=== PATIENT | female | born 1985 | race Caucasian/White ===

== ENCOUNTER 2018-01-30 22:32 | Emergency (ER) | payer BC, SELFPAY ==
[2018-01-30 22:33] VITALS: BP 110/75; PULSE 99; RESP 18; TEMP 36.7; O2SAT 95; BMI 23.8
--- NOTE | 2018-01-30 22:59 | ED.DCSUM_ITS ---
- ER Visit Summary Date of Service: 01/30/18 Chief Complaint: [] Pain to her right knee History of Present Illness: The patient is a 32 F patient stated she has some pain just distal to her right kneecap started yesterday gradual started to get red and warm and tender. Using ibuprofen with good relief. She has small cut there that healed up last week. She has never had infections before. Physical Examination: [] Vital signs reviewed General: Well-nourished well-developed Head: Normocephalic atraumatic Eyes: Pupils equal round and reactive to light extraocular movements intact ENT: TMs clear no hemotympanum no trauma Neck: Nontender full range of motion Cardiovascular: Regular rate rhythm no murmurs normal S1-S2 Respiratory: No distress clear to auscultation bilaterally chest nontender Abdomen: Soft nontender nondistended normal bowel sounds no masses Back: Nontender no CVA tenderness Extremities: She has a superficial cellulitis distal to her right kneecap. It measures 4 cm x 4 cm circular. There is no abscess Neuro alert oriented cranial nerves II through XII intact normal strength sensation reflexes Test Results: [] Emergency Department Course and Treatment: [] Time the patient is a superficial cellulitis. She will be treated with doxycycline and Keflex. Has a sulfa allergy therefore no Bactrim. Will follow-up as an outpatient. We will continue ibuprofen Treatment Plan: [] Disposition: [] Impression: [] Right leg cellulitis This note was generated with [employer] dictation software. It may contain incorrect words, spelling, and punctuation that were not noted in review of the chart prior to signing ED Disposition - Plan for ED Patient: Chief Complaint: Lower Extremity Injury Referrals: Tony Razo MD [Primary Care Provider] -
--- NOTE | 2018-01-30 22:59 | ED.DEP ---
ED Disposition - Plan for ED Patient: Disposition: Home or Assisted Living Chief Complaint: Lower Extremity Injury Instructions: Discharge Instructions for Cellulitis Prescriptions: Cephalexin [Keflex] 500 mg PO Q6 #28 cap Doxycycline Monohydrate 100 mg PO BID #14 cap Referrals: Tony Razo MD [Primary Care Provider] -
[2018-01-30] MEDS: Doxycycline 100 MG CAPSULE PO (23:25)
[2018-01-30] MEDS: Cephalexin 250 MG Capsule 500 MG PO (23:25)
[2018-01-30 23:27] VITALS: BP 104/74; PULSE 84; O2SAT 97
== END 2018-01-30 23:27 | disposition home or self-care (01) ==
LOC: ED 23:04
PROVIDERS: Emergency Provider Emergency Medicine; Family Provider Family Medicine; PCP Family Medicine
DX: L03.115 Cellulitis of right lower limb (principal); Z88.2 Allergy status to sulfonamides
CPT/HCPCS: 99282

== ENCOUNTER → 2018-05-16 16:30 | Outpatient (CLI) | payer BC, MEDICAID, SELFPAY ==
--- NOTE | 2018-05-16 16:30 | EMB_PTH ---
PATIENT: MIRTHA YUN LOC: [facility] U#:[id number] AGE/SX: 39/F ROOM: RE05/16/[address]: Dr. Cameron Camargo MD : [id number] BED: DIS: SPEC #: [id number] RECD: 05/16/18 19:08 STATUS: BARRY VIET #: [id number] ROB: 05/16/18 16:[address]: Cameron Camargo DEPT: SURGICAL PATHOLOGY RECD BY: Josef Lanza ENTERED: 05/17/18 10:18 SP TYPE: ENDOM BX/C SRINIVASAN DR: Dr. Tony Razo MD Tissues: Endometrium, NOS Procedures: Surgery Specimen Level IV HEADER OPERATION: Endometrial biopsy PRE-OP DIAGNOSIS: N92.1 TISSUE SUBMITTED: Endometrial biopsy MICROSCOPIC DIAGNOSIS Endometrial biopsy: Secretory endometrium. SJ:luz 05/20/18 MICROSCOPIC DESCRIPTION Slides are reviewed. GROSS DESCRIPTION Received in fixative is one container labeled with the patient's name and designated EM biopsy. The specimen consists of multiple irregular fragments of perez-pink soft tissue that in aggregate measure 3 x 2.5 x 0.3 cm. The entire specimen is submitted in one cassette. / SJ:luz 05/17/18 TC:4 CPT: 53585
[2018-05-21 10:00] LABS: HPV Reflexed? NOT INDICATED
--- OUTSIDE RECORDS SUMMARY | 2018-07-02 22:27 | XMS RPT_ITS ---
:1985 Author Organization OHIP Care Team Providers Name Role Phone HIMA ALFONSO ([facility]) Attending Unavailable LETY ALICEA Referring Unavailable HIMA ALFONSO ([facility]) Referring Unavailable ALICE LANCE ([facility]) Attending Unavailable Cameron Camargo Attending Unavailable Cameron Camargo Referring Unavailable Lety Alicea Primary Care Unavailable Lety Alicea Primary Care Unavailable Rafael Downs Attending Unavailable PROBLEMS PROBLEMS DATE TYPE CONDITION / CODE ATTENDING STATUS SOURCE 05/17/2018 Unknown N92.1 - Excessive Cameron Camargo Active [place] and frequent Community menstruation with Hospital irregular cycle / Repository N92.1(ICD-10) 05/17/2018 Unknown Z12.4 - Encounter Cameron Camargo Active [place] for screening for Community malignant neoplasm [facility] of cervix / Repository Z12.4(ICD-10) 07/05/2017 Active Encounter for NA Active [facility] antibody response [facility] examination / Repository Z01.84(ICD-10) PROCEDURES PROCEDURES No Procedure Records FoundRESULTS RESULTS ENDOMETRIAL BX/CURETTINGS Observed: 05/16/2018 Status: F Source: [place] 4:30 PM [facility] REPOSITORY Patient: MIRTHA MARIE : 1985 (32/F) Acct Num: [id number] Phys: Mary Jo MAR,Cameron Unit Num: [id number] Loc: LABSPEC Specimen: [id number] Received: 05/16/181907 Spec Type: ENDOM BX/C TISSUES 1 TISSUES: Endometrium, NOS GROSS DESCRIPTION Received in fixative is one container labeled with the patient's name and designated EM biopsy. The specimen consists of multiple irregular fragments of perez-pink soft tissue that in aggregate measure 3 x 2.5 x 0.3 cm. The entire specimen is submitted in one cassette. / SJ:luz 05/17/18 TC:4 CPT: 64508 HEADER OPERATION: Endometrial biopsy PRE-OP DIAGNOSIS: N92.1 TISSUE SUBMITTED: Endometrial biopsy MICROSCOPIC DESCRIPTION Slides are reviewed. MICROSCOPIC DIAGNOSIS Endometrial biopsy: Secretory endometrium. SJ:luz 05/20/18 Signed Melecio Foley MD 05/20/18 <signature on file> Performed By: #### PEMB #### [facility] [address] [place] [address]. [place], [address] PAP IG W/REFLEX HR Collected: 05/16/2018 Status: F Source: [place] HPV [place] 4:00 PM [facility] [place] Order Comment: CYTOLOGY INFORMATION: - CLINICAL INFORMATION: - DATE LMP/MENOPAUSE:04-21-18 LMP - COLLECTION VIAL: Thin Prep Vial - TANK HOUSE OPERATOR HELPER SOURCE: CERVICAL/ENDOCERVICAL - COLLECTION TECHNIQUE: BRUSH/SPATULA Specimen Comment: [id number] Specimen Comment: Source.............Labia/Vulva Specimen Comment: LMP / Prev Treat...[id number] Specimen Comment: No. of containers..01 ThinPrep Vial TYPE CODE TESTS RESULT OUT OF RANGE REFERENCE UNITS LAB L7400.0800 . Normal DIAGN Comment Result Comment: NEGATIVE FOR INTRAEPITHELIAL LESION AND MALIGNANCY. PREDOMINANCE OF COCCOBACILLI CONSISTENT WITH SHIFT IN VAGINAL LAUREN IS PRESENT. LAB L7400.0900 . Normal ADEQ Comment Result Comment: Satisfactory for evaluation. Endocervical and/or squamous metaplastic cells (endocervical component) are present. LAB L7400.1400 . Normal PERFORM Comment Result Comment: Sofia Carlson Care Team Coordinator Scheduler (ASCP) LAB L7400.2575 . Normal TEST METHOD Comment Result Comment: This liquid based ThinPrep(R) pap test was screened with the use of an image guided system. LAB L7400.2600 . Normal . COMM LAB L7400.2700 . Normal PAPSMR Comment Result Comment: The Pap smear is a screening test designed to aid in the detection of premalignant and malignant conditions of the uterine cervix. It is not a diagnostic procedure and should not be used as the sole means of detecting cervical cancer. Both false-positive and false-negative reports do occur. LAB L7400.2800 . Normal HPV RFLX Comment Result Comment: The HPV DNA reflex criteria were not met with this specimen result therefore, no HPV testing was performed. Performed at: - [facility] [id number] [employer] Experimental Mechanic: Mary Ferreira MD, Phone: [phone] Performed By: #### L7400.0357 #### [facility] (refer to report for specific site) refer to report for address and phone number EMERGENCY DEPARTMENT Observed: 01/31/2018 Status: F Source: [place] SUMMARY 1:11 AM [facility] [place] [facility] Medical Records Department [address] [place] [address] Emergency Department Summary 01/30/18 2258 MR#: [id number] Acct: [id number] Name: MIRTHA MARIE Rep #: [id number] : 1985 32 From: Rafael Downs MD PCP: Lety Alicea MD Status: DEP ER - ER Visit Summary Date of Service: 01/30/18 Chief Complaint: [] Pain to her right knee History of Present Illness: The patient is a 32 F patient stated she has some pain just distal to her right kneecap started yesterday gradual started to get red and warm and tender. Using ibuprofen with good relief. She has small cut there that healed up last week. She has never had infections before. Physical Examination: [] Vital signs reviewed General: Well-nourished well-developed Head: Normocephalic atraumatic Eyes: Pupils equal round and reactive to light extraocular movements intact ENT: TMs clear no hemotympanum no trauma Neck: Nontender full range of motion Cardiovascular: Regular rate rhythm no murmurs normal S1-S2 Respiratory: No distress clear to auscultation bilaterally chest nontender Abdomen: Soft nontender nondistended normal bowel sounds no masses Back: Nontender no CVA tenderness Extremities: She has a superficial cellulitis distal to her right kneecap. It measures 4 cm x 4 cm circular. There is no abscess Neuro alert oriented cranial nerves II through XII intact normal strength sensation reflexes Test Results: [] Emergency Department Course and Treatment: [] Time the patient is a superficial cellulitis. She will be treated with doxycycline and Keflex. Has a sulfa allergy therefore no Bactrim. Will follow-up as an outpatient. We will continue ibuprofen Treatment Plan: [] Disposition: [] Impression: [] Right leg cellulitis This note was generated with mobifriends dictation software. It may contain incorrect words, spelling, and punctuation that were not noted in review of the chart prior to signing ED Disposition - Plan for ED Patient: Chief Complaint: Lower Extremity Injury Referrals: Lety Alicea MD [Primary Care Provider] - What to do if you have Problems For any increased pain, shortness of breath, bleeding, nausea or vomiting, chest pain, or any unexpected problems, contact your Primary Care Provider. Call [facility] ([phone]) or report to the closest Emergency Room. Call 911 if necessary. 01/31/18 0111 <Electronically signed by Rafael Downs MD> Date Rafael Downs MD Cosigner Signature (If Indicated): Date CC: Lety Alicea MD DISCHARGE INSTRUCTION Observed: 01/31/2018 Status: F Source: [place] 1:11 AM [facility] [place] [facility] Medical Records Department [address] [place] [address] Discharge Instruction 01/30/18 2259 MR#: [id number] Acct: [id number] Name: MIRTHA MARIE Rep #: [id number] : 1985 32 From: Rafael Downs MD PCP: Lety Alicea MD Status: DEP ER ED Disposition - Plan for ED Patient: Disposition: Home or Assisted Living Chief Complaint: Lower Extremity Injury Instructions: Discharge Instructions for Cellulitis Prescriptions: Cephalexin [Keflex] 500 mg PO Q6 #28 cap Doxycycline Monohydrate 100 mg PO BID #14 cap Referrals: Lety Alicea MD [Primary Care Provider] - What to do if you have Problems For any increased pain, shortness of breath, bleeding, nausea or vomiting, chest pain, or any unexpected problems, contact your Primary Care Provider. Call [facility] ([phone]) or report to the closest Emergency Room. Call 911 if necessary. 01/31/18 0111 <Electronically signed by Rafael Downs MD> Date Rafael Downs MD Cosigner Signature (If Indicated): Date CC: Lety Alicea MD CNOV Observed: 01/02/2018 Status: COMPLETED Source: [place] 1:40 PM [facility] REPOSITORY Office Visit (FAMPWS) MIRTHA MARIE ([id number]) 1985 F Date Time Provider Department 01/02/18 1:40 PM ALICE LANCE ([facility]) FAMPWS During your visit today, we recorded the following information about you: Pulse Respiration Blood pressure Weight 74/minute 12/minute 104/70 64 kg Alice Lance APRN.CNP 01/02/2018 1:59 PM Signed This is a 32 year old female who presents today with: Patient presents with: Medication Follow-up HISTORY OF PRESENT ILLNESS: Mirtha Marie is a 32 year old female. Patient presents with: Medication Follow-up Pt presents today for medication renewal. No problems/concerns. Refers since starting the prozac, things have been a lot better. Refers that she is a constant worry and it has helped a lot. Has noticed more recently, though, worry is increasing a little. She worries about not being there for kids. Worries about something happening to kids. Worries about getting sick or having cancer. Worries about dying. Depression evaluation: Sadness: Just when worries too much. Oldest is starting kindergarten. Sleep: A lot better. Interests/Hobbies: Work and kids. Guilt: Not really -- appreciates the time with the young ones. Energy Levels: Normal. Concentration: Good. Appetite: Hasn't changed. Physical: no Suicidal/homicidal ideation: Denies. CP PHQ9 01/02/2018 Little interest or pleasure 0 - Not at all Feeling down, depressed, hopeless 0 - Not at all Trouble falling or staying asleep, sleeping too much 1 - Several days Feeling tired, having little energy 1 - Several days Poor appetite or overeating 0 - Not at all Feeling bad about yourself, failure or you have let yourself/family down 2 - More than half the days Trouble concentrating on things 0 - Not at all Moving or speaking so slowly, or fidgety or restless 1 - Several days Thoughts that you would be better off , or of hurting yourself in some way 0 - Not at all How difficult have these problems made things Not difficult at all Interpretation of Total Score 5-9 Mild depression INGRIS-7 ANXIETY SCALE 01/02/2018 FEELING NERVOUS,ANXIOUS,OR ON EDGE 1 Several days NOT BEING ABLE TO STOP OR CONTROL WORRYING 3 Nearly every day WORRYING TOO MUCH ABOUT DIFFERENT THINGS 3 Nearly every day TROUBLE RELAXING 2 Over half the days BEING SO RESTLESS THAT IT'S HARD TO SIT STILL 1 Several days BEING EASILY ANNOYED OR IRRITABLE 0 Not at all sure FEELING AFRAID IF SOMETHING AWFUL MIGHT HAPPEN 3 Nearly every day GAD7 SCORE 13 IF YOU CHECKED OFF ANY PROBLEMS Not difficult at all PAST MEDICAL HISTORY: PAST MEDICAL HISTORY Diagnosis Date - Chlamydia 2006 - GERD (gastroesophageal reflux disease) 04/10/2014 prilosec prn - KIDNEY INFECTION 05/2011 HOSPITALIZED 1 day in [place] - [facility] - PAST MEDICAL HISTORY OF 10-13-2004 NORMAL COLOR VISION - 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 Started at age 19. PAST SURGICAL HISTORY Procedure Laterality Date - NONE ALLERGIES Sulfa (Sulfonamide Antibiotics); Neosporin [Ewnulikq-Oczvbozetu-Xvcijgelj] MEDICATIONS Current Outpatient Prescriptions: FLUoxetine (PROZAC) 10 mg capsule TAKE 1 CAPSULE BY MOUTH ONCE DAILY. COMPOUNDED PRESCRIPTION Plexus products omeprazole (PRILOSEC) 20 mg capsule Take 1 capsule by mouth daily before breakfast. 1/2 hr before meal. No current facility-administered medications for this visit. FAMILY HISTORY Problem Relation Age of Onset - Lipids Mother - Psychiatry Father depression/anxiety - Hypertension Father - Thyroid Sister - Psychiatry Brother anxiety - Alcohol/Drug Brother - suicide attempt [OTHER] Brother - Heart Maternal Grandmother bypass surgery - Skin Cancer Maternal Grandmother - myocardial infarction [OTHER] Maternal Grandfather 35 - Heart Paternal Grandfather 30's - Psychiatry Sister bipolar Social History Marital status: Spouse name: CHEYENNE Years of education: 14 Number of children: Occupational History Occupation Employer [employer]* Social History Main Topics Smoking status: Former Smoker Packs/day: 0.00 Years: 7.00 Types: Cigarettes Quit date: 03/03/2013 Smokeless tobacco: Never Used Comment: quit about 3 weeks Alcohol use: Yes 1.5 - 3.0 oz/week Cans of Beer (12oz): 1 - 2 per week Comment: NOT WHILE Drug use: No EXAM: BP 104/70 (BP Site: Right Arm, BP Position: Sitting, BP Cuff Size: Regular Adult) Pulse 74 Resp 12 Wt 64 kg (141 lb) BMI 23.83 kg/m? PHYSICAL EXAM: General Appearance: Well appearing, alert, in no acute distress, well-hydrated, well nourished.. Skin: Skin color, texture, turgor normal, no suspicious rashes or lesions. Head: Normocephalic, no masses, lesions, tenderness or abnormalities. Eyes: Anicteric sclera. Extraocular movements are intact. . Lungs: Lungs clear to auscultation. No wheezing, rhonchi, rales. Heart: RRR without murmur, gallop, or rubs. No ectopy. Extremities: No deformities, edema, skin discoloration, clubbing or cyanosis. Good capillary refill. Neurologic: Gait normal. ASSESSMENT/PLAN: 1. Anxiety - ICD9: 300.00, ICD10: F41.9 Improved. Has noticed worry increasing again more recently. Will increase dose. Recheck in a month -- sooner if needed. - FLUOXETINE 20 MG CAPSULE Discussed treatment plan and patient voices understanding. Patient's questions answered appropriately. Medications and potential side effects were discussed and patient voices understanding. Return to the office as scheduled or as needed for worsening/no improvement. Alice Lance APRN.DINORA Lance APRN.CNP 01/02/2018 1:44 PM Signed 1. Start new dose of medication. 2. Recheck in a month. Referring Provider: SELF [200] Allergies As of Date: 01/02/2018 Noted Allergy Reaction SULFA (SULFONAMIDE ANTIBIOTICS) 06/09/2011 2 - Rash NEOSPORIN (YJAGHRQE-YOIGGZFGNH-[id number]*05/14/2009 Comments: RASH Date Reviewed: 01/02/2018 Reviewed by: Cece Partida Information Technology Security Analyst - Fully Assessed Reason for Visit: Medication Follow-up [270] Primary Visit Diagnosis:Anxiety [F41.9] Order(s):FLUoxetine (PROZAC) 20 mg capsuleTake 1 capsule by mouth once daily.Disp: 30 capsuleRfl: 3 Prescriptions as of 01/02/2018 Sig: COMPOUNDED PRESCRIPTION Plexus products FLUOXETINE 20 MG CAPSULE Take 1 capsule by mouth once * Problem List As Of Date 01/02/2018 Noted Resolved Plantar Fascial Fibromatosis [M72.2] INVALID FOR* Short interval between pregnancies complicating*INVALID FOR*04/25/2013 More... with care elsewhere [Z34.90] INVALID FOR*04/25/2013 More... First trimester bleeding [O20.9] INVALID FOR*10/23/2013 More... Quit smoking [Z87.891] INVALID FOR*10/23/2013 More... Nausea/vomiting in [O21.9] INVALID FOR*04/25/2013 More... History of recurrent UTI (urinary tract infecti*INVALID FOR*10/23/2013 More... Family history of mental retardation [Z81.0] INVALID FOR*10/23/2013 More... Rh negative status during , antepartum*INVALID FOR*10/23/2013 Rubella non-immune status, antepartum [O99.89, *INVALID FOR*10/23/2013 More... Post depression [F53] INVALID FOR* Priority: A Smoker [F17.200] INVALID FOR* Priority: C More... GERD (gastroesophageal reflux disease) [K21.9] INVALID FOR* Priority: A More... Anxiety [F41.9] INVALID FOR* Other instructions from your clinician: 1. Start new dose of medication. 2. Recheck in a month. Prescriptions ordered this encounter Disp Refills Start End FLUOXETINE 20 MG CAPSULE 30 c* 3 01/02/2018 Route: ORAL Sig: Take 1 capsule by mouth once daily. Medications Discontinued During This Encounter FLUoxetine (PROZAC) 10 mg capsule 30 c* 0 11/06/2017 01/02/2018 Route: ORAL Sig: TAKE 1 CAPSULE BY MOUTH ONCE DAILY. Disc: Dosage adjustment omeprazole (PRILOSEC) 20 mg capsule 30 c* 2 09/15/2016 01/02/2018 Route: ORAL Sig: Take 1 capsule by mouth daily before breakfast. 1/2 hr before meal. Disc: Course of therapy completed Disposition: Return in about 1 month (around 02/02/2018), or if symptoms worsen or fail to improve, for med recheck, depression. Follow-up and Disposition History Recorded Questionnaire: INGRIS-7 ANXIETY SCALE Feeling nervous, anxious, or on edge -> 1 Several days Not being able to stop or control worrying -> 3 Nearly every day Worrying too much about different things -> 3 Nearly every day Trouble relaxing -> 2 Over half the days Being so restless that it's hard to sit still -> 1 Several days Being easily annoyed or irritable -> 0 Not at all sure Feeling afraid as if something awful might happen -> 3 Nearly every day INGRIS-7 Anxiety Score -> 13 If you checked off any problems, how difficult have these problems made it for you to do your work, take care of things at home, or get along with other people? -> Not difficult at all Encounter Status:Closed by ALICE LANCE CNP on 01/02/18 PROGRESS Observed: 01/02/2018 Status: COMPLETED Source: [place] 1:34 PM [facility] HNO ID: [id number] Author: Alice (Dinora) Natalio Service: (none) Author Type: Nurse Practitioner Type: Progress Notes Filed: 01/02/2018 1:59 PM Note Text: This is a 32 year old female who presents today with: Patient presents with: Medication Follow-up HISTORY OF PRESENT ILLNESS: Mirtha Marie is a 32 year old female. Patient presents with: Medication Follow-up Pt presents today for medication renewal. No problems/concerns. Refers since starting the prozac, things have been a lot better. Refers that she is a constant worry and it has helped a lot. Has noticed more recently, though, worry is increasing a little. She worries about not being there for kids. Worries about something happening to kids. Worries about getting sick or having cancer. Worries about dying. Depression evaluation: Sadness: Just when worries too much. Oldest is starting kindergarten. Sleep: A lot better. Interests/Hobbies: Work and kids. Guilt: Not really -- appreciates the time with the young ones. Energy Levels: Normal. Concentration: Good. Appetite: Hasn't changed. Physical: no Suicidal/homicidal ideation: Denies. CP PHQ9 01/02/2018 Little interest or pleasure 0 - Not at all Feeling down, depressed, hopeless 0 - Not at all Trouble falling or staying asleep, sleeping too much 1 - Several days Feeling tired, having little energy 1 - Several days Poor appetite or overeating 0 - Not at all Feeling bad about yourself, failure or you have let yourself/family down 2 - More than half the days Trouble concentrating on things 0 - Not at all Moving or speaking so slowly, or fidgety or restless 1 - Several days Thoughts that you would be better off , or of hurting yourself in some way 0 - Not at all How difficult have these problems made things Not difficult at all Interpretation of Total Score 5-9 Mild depression INGRIS-7 ANXIETY SCALE 01/02/2018 FEELING NERVOUS,ANXIOUS,OR ON EDGE 1 Several days NOT BEING ABLE TO STOP OR CONTROL WORRYING 3 Nearly every day WORRYING TOO MUCH ABOUT DIFFERENT THINGS 3 Nearly every day TROUBLE RELAXING 2 Over half the days BEING SO RESTLESS THAT IT'S HARD TO SIT STILL 1 Several days BEING EASILY ANNOYED OR IRRITABLE 0 Not at all sure FEELING AFRAID IF SOMETHING AWFUL MIGHT HAPPEN 3 Nearly every day GAD7 SCORE 13 IF YOU CHECKED OFF ANY PROBLEMS Not difficult at all PAST MEDICAL HISTORY: PAST MEDICAL HISTORY Diagnosis Date - Chlamydia 2006 - GERD (gastroesophageal reflux disease) 04/10/2014 prilosec prn - KIDNEY INFECTION 05/2011 HOSPITALIZED 1 day in [place] - [facility] - PAST MEDICAL HISTORY OF 10-13-2004 NORMAL COLOR VISION - 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 Started at age 19. PAST SURGICAL HISTORY Procedure Laterality Date - NONE ALLERGIES Sulfa (Sulfonamide Antibiotics); Neosporin [Sscgtqbi-Nzutsmbpjt-Fpffjxsaj] MEDICATIONS Current Outpatient Prescriptions: FLUoxetine (PROZAC) 10 mg capsule TAKE 1 CAPSULE BY MOUTH ONCE DAILY. COMPOUNDED PRESCRIPTION Plexus products omeprazole (PRILOSEC) 20 mg capsule Take 1 capsule by mouth daily before breakfast. 1/2 hr before meal. No current facility-administered medications for this visit. FAMILY HISTORY Problem Relation Age of Onset - Lipids Mother - Psychiatry Father depression/anxiety - Hypertension Father - Thyroid Sister - Psychiatry Brother anxiety - Alcohol/Drug Brother - suicide attempt [OTHER] Brother - Heart Maternal Grandmother bypass surgery - Skin Cancer Maternal Grandmother - myocardial infarction [OTHER] Maternal Grandfather 35 - Heart Paternal Grandfather 30's - Psychiatry Sister bipolar Social History Marital status: Spouse name: CHEYENNE Years of education: 14 Number of children: Occupational History Occupation Employer Comment [employer]* Social History Main Topics Smoking status: Former Smoker Packs/day: 0.00 Years: 7.00 Types: Cigarettes Quit date: 03/03/2013 Smokeless tobacco: Never Used Comment: quit about 3 weeks Alcohol use: Yes 1.5 - 3.0 oz/week Cans of Beer (12oz): 1 - 2 per week Comment: NOT WHILE Drug use: No EXAM: BP 104/70 (BP Site: Right Arm, BP Position: Sitting, BP Cuff Size: Regular Adult) Pulse 74 Resp 12 Wt 64 kg (141 lb) BMI 23.83 kg/m? PHYSICAL EXAM: General Appearance: Well appearing, alert, in no acute distress, well-hydrated, well nourished.. Skin: Skin color, texture, turgor normal, no suspicious rashes or lesions. Head: Normocephalic, no masses, lesions, tenderness or abnormalities. Eyes: Anicteric sclera. Extraocular movements are intact. . Lungs: Lungs clear to auscultation. No wheezing, rhonchi, rales. Heart: RRR without murmur, gallop, or rubs. No ectopy. Extremities: No deformities, edema, skin discoloration, clubbing or cyanosis. Good capillary refill. Neurologic: Gait normal. ASSESSMENT/PLAN: 1. Anxiety - ICD9: 300.00, ICD10: F41.9 Improved. Has noticed worry increasing again more recently. Will increase dose. Recheck in a month -- sooner if needed. - FLUOXETINE 20 MG CAPSULE Discussed treatment plan and patient voices understanding. Patient's questions answered appropriately. Medications and potential side effects were discussed and patient voices understanding. Return to the office as scheduled or as needed for worsening/no improvement. Alice Lance APRN.PORTFOLIO ACCOUNTANT VARICELLA ZOSTER IGG Collected: 07/05/2017 Status: F Source: [place] 1:39 PM [facility] REPOSITORY TYPE CODE TESTS RESULT OUT OF RANGE REFERENCE UNITS LAB VZVGQL Negative Abnormal V. zoster Positive Alert IgG, Qual Result Comment: Presence of detectable VZV IgG antibodies. A positive result generally indicates exposure to the pathogen or administration of specific immunoglobulins, but is no indication of active infection or stage of disease. LAB VZVG Index Value Varicella Zoster IgG 1228.0 Result Comment: Index Values are Interpreted as Follows: Negative specimens <135.0 Equivocal specimens 135.0 to 164.9 Positive specimens >164.9 The magnitude of the measured result is not indicative of the amount of antibody present. Performed By: #### VZVG2, MEASLG, MUMPSG, RUBIGG, AHBSQ #### [place] [address] [place] [address] MEASLES IGG ANTIBODY Collected: 07/05/2017 Status: F Source: [place] 1:39 [facility] REPOSITORY TYPE CODE TESTS RESULT OUT OF RANGE REFERENCE UNITS LAB MEASQL Negative Abnormal Measles IgG Positive Alert Ab, Qual Result Comment: Presence of detectable measles virus IgG antibodies. A positive result generally indicates exposure to measles virus or previous vaccination. LAB MEASG AU/mL Measles IgG Antibody 278.0 Result Comment: AU/mL Value interpreted as follows: Negative specimens <25.0 Equivocal specimens 25.0 to 29.9 Positive specimens >29.9 The magnitude of the measured result, above the cutoff, is not indicative of the amount of antibody present. Performed By: #### VZVG2, MEASLG, MUMPSG, RUBIGG, AHBSQ #### [place] [address] [place] [address] MUMPS IGG AB Collected: 07/05/2017 Status: F Source: [place] 1:[address] [place] [address] REPOSITORY TYPE CODE TESTS RESULT OUT OF RANGE REFERENCE UNITS LAB MUMPSR Negative Abnormal Alert Mumps Positive IgG, Qual Result Comment: Presence of detectable mumps virus IgG antibodies. A positive result generally indicates past exposure to mumps virus or previous vaccination. LAB MUMS AU/mL Mumps IgG Ab 30.0 Result Comment: AU/mL Values interpreted as follows: Negative Specimens <9.0 Equivocal specimens 9.0 to 10.9 Positive specimens >10.9 The magnitude of the measured result, above the cutoff, is not indicative of the amount of antibody present. Performed By: #### VZVG2, MEASLG, MUMPSG, RUBIGG, AHBSQ #### [place] [address] [place] [address] RUBELLA IGG ANTIBODY Collected: 07/05/2017 Status: F Source: PINET[place] 1:39 [facility] REPOSITORY TYPE CODE TESTS RESULT OUT OF RANGE REFERENCE UNITS LAB RUBGQL Negative Abnormal Rubella IgG Positive Alert Ab, Qual Result Comment: Sample is considered positive for IgG antibodies to rubella virus. A positive result indicates previous exposure to Rubella virus or vaccination. LAB RUBQNT Index Value Rubella IgG Ab 2.64 Result Comment: Index values are interpreted as follows: Negative specimens <0.90 Equivocol specimens 0.90 to 0.99 Positive specimens >0.99 The magnitude of the measured result is not indicative of the amount of antibody present. Performed By: #### VZVG2, MEASLG, MUMPSG, RUBIGG, AHBSQ #### [facility] [address] [place], [place] [address] HEPB SURFACEAB,QUANT Collected: 07/05/2017 Status: F Source: [place] 1:39 PM [facility] REPOSITORY TYPE CODE TESTS RESULT OUT OF REFERENCE UNITS RANGE LAB AHBSQ <8.00 mIU/mL High HepB 35.07 SurfaceAb,Qu ant Result Comment: These results are consistent with previous exposure and/or immunity to the hepatitis B virus antigen. Performed By: #### VZVG2, MEASLG, MUMPSG, RUBIGG, AHBSQ #### [facility] [address] [place], [place] [address] PROGRESS Observed: 07/05/2017 Status: COMPLETED Source: [place] 1:21 PM [facility] REPOSITORY HNO ID: [id number] Author: Hima Olmstead (Dinora) DINORA Alfonso Service: (none) Author Type: Nurse Practitioner Type: Progress Notes Filed: 07/05/2017 1:26 PM Note Text: HPI/CC: Mirtha Marie is a 31 year old female who presents for school paper work to be completed. Also struggling with increased worry over the last year. Worries about dying and children being ill. Denies SI/HI. Previously treated for anxiety with prozac. Overall no change since February well adult visit. Feels well. REVIEW OF SYSTEMS: GENERAL:Denies fever, chills, night sweats, or changes in weight. EYES: Denies recent visual changes., wears glasses/contacts ENT: Denies hearing loss or tinnitus RESPIRATORY: Denies any cough, dyspnea, or wheezing. CARDIOVASCULAR: Denies any chest pain with exertion or at rest, palpitations, syncope, or edema. MUSCULOSKELETAL: Denies any joint swelling, crepitus, joint pain, or loss of range of motion., Denies back pain. NEURO: Denies any headaches, tremors, dizziness, vertigo, memory loss, confusion., Denies weakness, numbness or tingling.. 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 Started at age 19. PAST SURGICAL HISTORY Procedure Laterality Date - NONE FAMILY HISTORY Problem Relation Age of Onset - Lipids Mother - Psychiatry Father depression/anxiety - Hypertension Father - Thyroid Sister - Psychiatry Brother anxiety - Alcohol/Drug Brother - suicide attempt [OTHER] Brother - Heart Maternal Grandmother bypass surgery - Skin Cancer Maternal Grandmother - myocardial infarction [OTHER] Maternal Grandfather 35 - Heart Paternal Grandfather 30's - Psychiatry Sister bipolar Social History Marital status: Spouse name: CHEYENNE Years of education: 14 Number of children: Occupational History Occupation Employer [employer]* Social History Main Topics Smoking status: Former Smoker Packs/day: 0.00 Years: 7.00 Types: Cigarettes Quit date: 03/03/2013 Smokeless status: Never Used Comment: quit about 3 weeks Alcohol use: Yes 1.5 - 3.0 oz/week 1 - 2 Cans of Beer (12oz) per week Comment: NOT WHILE Drug use: No Current Outpatient Prescriptions on File Prior to Visit: COMPOUNDED PRESCRIPTION P[employer]us products omeprazole (PRILOSEC) 20 mg capsule Take 1 capsule by mouth daily before breakfast. 1/2 hr before meal. No current facility-administered medications on file prior to visit. ALLERGIES Allergen Reactions - Sulfa (Sulfonamide * Rash - Neosporin [Neomycin* RASH OBJECTIVE/PHYSICAL EXAMINATION: BP 94/64 Pulse 84 Resp 16 General appearance: Well appearing, alert, in no acute distress, well-hydrated, well nourished. Skin: Skin color, texture, turgor normal, no suspicious rashes or lesions Head: Normocephalic, no masses, lesions, tenderness or abnormalities Eyes: Anicteric sclera. Pupils are equally round and reactive to light. Extraocular movements are intact. Ears: External ears normal, canals clear, TM's normal Nose/Sinuses: Nares normal, septum midline, mucosa normal, no drainage or sinus tenderness Oropharynx: Lips, mucosa, and tongue normal, teeth and gums normal, oropharynx normal Neck: Supple, no adenopathy; thyroid symmetric, normal size, no bruits Lungs: Lungs clear to auscultation. No wheezing, rhonchi, rales Heart: Regular rate and rythm without murmur, normal S1 and S2 ASSESSMENT/PLAN: 1. Anxiety - ICD9: 300.00, ICD10: F41.9 (primary diagnosis) - FLUOXETINE 10 MG CAPSULE - f/u in 4 -6 weeks 2. Screening examination for pulmonary tuberculosis - ICD9: V74.1, ICD10: Z11.1 - PPD (TB INTRADERMAL 50769) B/O 3. Immunity status testing - ICD9: V72.61, ICD10: Z01.84 - MUMPS IGG AB - RUBEOLA (MEASLES)IGG - RUBELLA IGG AB - VARICELLA ZOSTER IGG - HEP B SURF AB QUANT - PPD (TB INTRADERMAL 09012) B/O - paperwork completed and returned to patient. Awaiting titers Hima Alfonso CNP ALLERGIES ALLERGIES DATE TYPE / CODE NAME / CODE REACTION SEVERITY SOURCE 01/30/2018 Drug neomycin Rash Unknown [place] Allergy/416 sulfate/[id number] Community 727077([facility] 7(RXNORM) [facility] ED CT) Repository 01/30/2018 Drug bacitracin Rash Unknown [place] Allergy/416 zinc/[id number](R Community 924467([facility] XNORM) Hospital ED CT) Repository 01/30/2018 Drug Sulfa Rash Unknown [place] Allergy/416 (Sulfonamide Community 345405([facility] Antibiotics)/F001 Hospital ED CT) 029819(RXNORM) Repository 01/30/2018 Drug naproxen/[id number] Other Unknown [place] Allergy/416 80(RXNORM) Community 605410([facility] ED CT) Repository 01/30/2018 Drug bacitracin/X81133 Rash Unknown [place] Allergy/416 2798(RXNORM) Community 656607([facility] ED CT) Repository 01/30/2018 Drug polymyxin Rash Unknown [place] Allergy/416 B/[id number](RXNO Community 981143(SNOM RM) Hospital ED CT) Repository 06/09/2011 Drug SULFA RASH High [facility] Class/52100 (SULFONAMIDE [place] [facility]3(SNOMED ANTIBIOTICS) Repository CT) 05/14/2009 DRUG/295555 NEOMYCIN-BACITRAC [facility] 003(SNOMED IN-POLYMYXIN [place] [facility]) Repository ENCOUNTERS ENCOUNTERS ADMIT/DISCHARGE ACCOUNT ADMITTING ENCOUNTER LOCATION SOURCE NUMBER CLASS 05/16/2018 [id number] Ambulatory [facility] ing:LABSPEC Repository 01/30/2018/01/31/20 [id number] Emergency [address] ing:ED Repository 01/02/2018/01/04/20 [id number] Ambulatory [address] Repository 07/05/2017/07/05/19 [id number] Ambulatory [address] Repository 07/05/2017/07/05/19 [id number] Ambulatory [address] Repository PAYERS PAYERS ENCOUNTER GUARANTOR PAYER SUBSCRIBER SOURCE 05/16/2018 MIRTHA E [id number] Primary [place] TR Insurance:ANTHEMPolic CastoDOB: [address], y Number: [id number] [facility] [address]Zyn: [id number] Repository Date:[id number] [address] ([address]) [id number] [place] [address]KC: 05/16/2018 Secondary MIRTHA E [place] Insurance:CARESOURCEP CASTODOB: [facility] Number: [id number] [facility] [id number] Repository Date:2018-05-16[address]ATTN: [place] [address]UX: 05/16/2018 Tertiary NOT GIVENUNK [place] Insurance:SELF PAY [facility] Number: Effective Repository Date:2018-05-16 01/30/2018 MIRTHA E VIKKIO93 Primary [place] TR Insurance:ANTHEMPolic CastoDOB: [address], y Number: [id number] [facility] [address]Cwf: [id number] Repository Date:1715-87-08[address]OX (HP) [address] [address]CN: 01/30/2018 Secondary NOT GIVENUNK [place] Insurance:SELF PAY [facility]: Effective Repository Date:2018-01-30
== END ==
PROVIDERS: Family Provider Family Medicine; PCP Family Medicine; Referring Provider Obstetrics & Gynecology; Visit Provider Obstetrics & Gynecology
DX: Z12.4 Encounter for screening for malignant neoplasm of cervix (principal); N92.1 Excessive and frequent menstruation with irregular cycle
CPT/HCPCS: 87624; 88175; 88305; G0145